=== PATIENT | female | born 1990 | race Asian ===

== ENCOUNTER 2016-10-30 19:43 | Emergency (ER) | payer OTHER, BC ==
[~2016-10-30] VITALS: Ht 157.5 cm; Wt 57.2 kg
[2016-10-30 19:49] VITALS: TEMP 36.7; Ht 157.5 cm; Wt 57.2 kg
[2016-10-30] MEDS ORDERED: CHOL20007 PO (20:00)
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
[2016-10-30 21:52] VITALS: BP 116/63; PULSE 79; O2SAT 97
== END 2016-10-30 21:53 | disposition home or self-care (01) ==
LOC: C.EDB 19:44 → C.EDD 21:53
DX: M25.542 Pain in joints of left hand (principal); V43.52XA Car driver injured in collision with other type car in traffic accident, initial encounter

== ENCOUNTER → 2016-11-03 | Outpatient (CLI) | payer OTHER, BC ==
[~2016-11-03] MED LIST: CHOL20007 PO
--- NOTE | 2016-11-03 14:18 | DIAGNOSTIC IMAGING REPORT ---
LEFT FOURTH FINGER 3 VIEWS CLINICAL HISTORY: Left fourth finger pain. FINDINGS: 3 views of the left fourth finger are obtained. Correlation is made with radiographs of the left hand dated 10/30/2016. The skeletal structures are well mineralized. No fracture is identified. The fourth metacarpophalangeal and interphalangeal joints are well-maintained. Mild soft tissue swelling is present in the distal finger. IMPRESSION: Mild soft tissue swelling with no radiographic evidence of fracture in the left fourth finger. Electronically signed by: Ancelmo Fontanez M.D. 11/03/2016 2:17 PM Dictated Date/Time: 11/03/2016 2:15 PM
== END | disposition home or self-care (01) ==
LOC: C.RAD1850 12:51
PROVIDERS: ATTEND Nurse Practitioner Family
DX: M79.89 Other specified soft tissue disorders (principal); M79.645 Pain in left finger(s)

== ENCOUNTER → 2017-04-11 | Outpatient (CLI) | payer BC | END | disposition home or self-care (01) | LOC: C.PAPS 09:29 | PROVIDERS: ATTEND Physician Assistant | DX: Z01.419 Encounter for gynecological examination (general) (routine) without abnormal findings (principal); R87.610 Atypical squamous cells of undetermined significance on cytologic smear of cervix (ASC-US) ==

== ENCOUNTER → 2017-04-11 | Outpatient (CLI) | payer BC ==
[2017-04-15 13:07] LABS: CHLAMYDIA TRACH RNA*** NOT DETECTED (NOT DETECTED); GC (NEIS GONORRHOEAE)RNA** NOT DETECTED (NOT DETECTED)
== END | disposition home or self-care (01) ==
LOC: C.LABSPEC 17:50
PROVIDERS: ATTEND Physician Assistant
DX: Z01.419 Encounter for gynecological examination (general) (routine) without abnormal findings (principal)

== ENCOUNTER → 2017-08-10 | Outpatient (CLI) | payer OTHER, BC ==
--- NOTE | 2017-08-10 09:44 | DIAGNOSTIC IMAGING REPORT ---
LEFT ANKLE 3 VIEWS HISTORY: LEFT ANKLE PAIN COMPARISON: None. FINDINGS: There is no fracture or dislocation. Soft tissues are unremarkable. No radiopaque foreign bodies. IMPRESSION: No fractures. Electronically signed by: Hira Bella M.D. 08/10/2017 9:43 AM Dictated Date/Time: 08/10/2017 9:42 AM
== END | disposition home or self-care (01) ==
LOC: C.RAD1850 09:32
PROVIDERS: ATTEND Nurse Practitioner
DX: M25.572 Pain in left ankle and joints of left foot (principal)